=== PATIENT | female | born 2000 | race Caucasian/White ===

== ENCOUNTER 2025-02-05 20:22 | Outpatient (CLI) | payer OTHER, SELFPAY | END 2025-02-05 20:23 | disposition home or self-care (01) | PROVIDERS: Visit Provider Emergency Medicine | DX: R56.9 Unspecified convulsions (principal) | CPT/HCPCS: A0425; A0433 ==

== ENCOUNTER 2025-02-05 20:55 | Emergency (ER) | payer OTHER, SELFPAY ==
[2025-02-05] VITALS (7 sets, daily range): BP systolic 134; BP diastolic 81; PULSE 75–94; RESP 0–18; TEMP 36.4; O2SAT 94–99; BMI 29.2
[2025-02-05 21:40] LABS: Hematocrit 41.2 % (33.0-51.0); Hemoglobin* 14.2 gm/dL (12.0-16.0); Immature Granulocytes Abs Auto 0.04 K/uL (0.00-0.30); Immature Granulocytes Pct Auto 0.4 %; Lymphocytes Absolute Auto 1.20 K/uL (0.90-2.90); Mean Corpuscular HGB Conc 35 gm/dL (32-36); Mean Corpuscular Hemoglobin 29 pg (26-34); Mean Corpuscular Volume 85 fL (80-100); RDW Coefficient of Variation % 11.9 % (11.5-15.5); Red Blood Count 4.83 m/uL (4.00-5.20); Slide Review Reflex No; White Blood Count* 10.50 K/uL (4.50-11.00)
--- NOTE | 2025-02-05 21:43 | ED.GENADULT ---
HPI - General Adult General Date Seen: 02/05/25 Chief complaint: Seizure Stated complaint: Seizure Time Seen by Provider: 02/05/25 21:01 History of Present Illness HPI narrative: Patient is a generally healthy 24-year-old, visiting friends from [facility]. She does have a remote seizure history 13 years ago, none since. She is not on any antiseizure medicines. She was on the couch at her friend's house had a witnessed generalized seizure lasting about 2 minutes. No injuries or loss of bowel or bladder. She does have some nausea, paramedics gave her Zofran and droperidol. She feels very tired but that is her only complaint to me. She says for the past week she has been having some cold symptoms, denies any other significant illness, no recent trauma. She does not smoke, drinks occasionally, no other substances. Related Data Home Medications ?Medication ?Instructions ?Recorded ?Confirmed Wellbutrin 02/05/25 fluoxetine 10 mg capsule (Prozac) 10 mg PO DAILY 02/05/25 02/05/25 naltrexone 4.5 mg capsule mg PO 02/05/25 (Lotrexone) Allergies Allergy/AdvReac Type Severity Reaction Status Date / Time lomotragin Allergy Mild Uncoded 02/05/25 21:05 Review of Systems Status of ROS: Reports: 10 or more systems reviewed and unremarkable except as noted in History and below [facility] Social History Smoking Status: Never smoker Do you use any of these nicotine containing products: None Second hand tobacco smoke exposure: No How often do you have a drink containing alcohol: monthly or less How many standard drinks containing alcohol do you have on a typical day: 1 or 2 How often do you have six or more drinks on one occasion: Never AUDIT-C Alcohol total score: 1 Non-prescribed substance use: denies use service: No Exam Narrative: Exam Narrative: Vital signs reviewed In general, somnolent but easily arousable young woman. Well-appearing. Head: Normocephalic, atraumatic. Eyes: Sclera clear. Pupils equal and reactive. ENT: Mucous membranes moist. Neck: Supple without adenopathy. Heart: Regular rate and rhythm without murmur. Lungs: Clear. No increased work of breathing, crackles or wheezes. Abdomen: Soft, nontender to palpation. Extremities: Well perfused, pulses intact. No significant edema. Neurologic: Alert, conversant. Speech fluent, face symmetric. Moves all extremities equally. Skin: Warm, dry well perfused. Affect: Normal. Const: Vital Signs, click to edit/add: Vital Signs - 24 hr 02/05/25 20:59 02/05/25 21:05 02/05/25 21:15 Temperature 97.5 F L Pulse Rate 85 77 Pulse Rate [Pulse Oximeter] 75 Respiratory Rate 18 16 0 L Blood Pressure [Le ft Forearm] 134/81 Pulse Oximetry 94 96 94 Oxygen Delivery Me thod Room Air 02/05/25 21:30 02/05/25 21:45 02/05/25 22:00 Temperature Pulse Rate 93 90 94 Pulse Rate [Pulse Oximeter] Respiratory Rate 11 L 9 L 9 L Blood Pressure [Le ft Forearm] Pulse Oximetry 99 97 98 Oxygen Delivery Me thod 02/05/25 22:15 Temperature Pulse Rate 78 Pulse Rate [Pulse Oximeter] Respiratory Rate 16 Blood Pressure [Le ft Forearm] Pulse Oximetry 97 Oxygen Delivery Me thod Course Course ED Course: Given the remote nature of her previous seizure, will check some basic labs and give her some time to further wake up. Her exam however is reassuring, neurologically she is intact. I do not think there is any indication for imaging tonight. She has continued to awaken, is feeling better. Basic labs including magnesium reviewed and all reassuring. Blood sugar was 155. I spoke with her parents in [place] as well. I think it is reasonable let her go home. She is supposed to fly home tomorrow, she had a 5:00 a.m. flight which they are going to move to later in the day but discussed I think it is just fine for her to fly home tomorrow as planned on that later flight. In the meantime if she has recurrent seizure, should return to the ER. Neurology follow-up when she gets home. Vital Signs Vital signs: Initial Vital Signs Temperature 97.5 F L 02/05/25 20:59 Temperature Source Temporal Artery Scan 02/05/25 20:59 Pulse Rate 75 02/05/25 20:59 Pulse Rhythm Regular 02/05/25 20:59 Respiratory Rate 18 02/05/25 20:59 Blood Pressure 134/81 02/05/25 20:59 Blood Pressure Mean 98 02/05/25 20:59 Blood Pressure Position Sitting 02/05/25 20:59 Pulse Oximetry 94 02/05/25 20:59 Oxygen Delivery Method Room Air 02/05/25 20:59 Vital Signs Temperature 97.5 F L 02/05/25 20:59 Pulse Rate 75 02/05/25 20:59 Respiratory Rate 18 02/05/25 20:59 Blood Pressure 134/81 02/05/25 20:59 Pulse Oximetry 94 02/05/25 20:59 Oxygen Delivery Method Room Air 02/05/25 20:59 Temperature 97.5 F L 02/05/25 20:59 Pulse Rate 78 02/05/25 22:15 Respiratory Rate 16 02/05/25 22:15 Blood Pressure 134/81 02/05/25 20:59 Pulse Oximetry 97 02/05/25 22:15 Oxygen Delivery Method Room Air 02/05/25 20:59 Medical Decision Making Lab Data Lab results reviewed: Yes I reviewed the patient's lab results Labs: Lab Results 02/05/25 Range/Units 21:35 WBC 10.50 (4.50-11.00) K/uL RBC 4.83 (4.00-5.20) m/uL Hgb 14.2 (12.0-16.0) gm/dL Hct 41.2 (33.0-51.0) % MCV 85 (80-100) fL MCH 29 (26-34) pg MCHC 35 (32-36) gm/dL RDW Coeff of Cristal 11.9 (11.5-15.5) % Plt Count 187 (140-440) K/uL Neut % (Auto) 81.1 H (42.0-72.0) % Lymph % (Auto) 11.8 L (20-44) % [place]upe % (Auto) 5.9 (0.0-11.0) % Eos % (Auto) 0.6 (0.0-7.0) % Baso % (Auto) 0.2 (0.0-3.0) % Neut # (Auto) 8.50 H (1.7-7.0) K/uL Lymph # (Auto) 1.20 (0.90-2.90) K/uL [place] # (Auto) 0.60 (0.00-0.90) K/UL Eos # (Auto) 0.06 (0.00-0.50) K/uL Baso # (Auto) 0.02 (0.00-0.30) K/uL Abs Immat Gran (auto) 0.04 (0.00-0.30) K/uL Imm/Tot Granulo (auto) 0.4 % Sodium 136 (135-149) mmol/L Potassium 3.7 (3.6-5.1) mmol/L Chloride 102 (96-114) mmol/L Carbon Dioxide 23 (20-32) mmol/L Anion Gap 11 (7-15) mEq/L BUN 11 (5-24) mg/dL Creatinine 0.8 (0.5-1.5) mg/dL Estimated Creat Clear 92.83 Estimated GFR 105 ml/min Glucose 155 H (60-115) mg/dL Calcium 9.2 (8.4-10.6) mg/dL Magnesium 2.3 (1.5-2.6) mg/dL Discharge Plan Discharge Clinical Impression: Generalized seizure Patient Disposition: Home, Self-Care Condition: Improved Instructions: New-Onset Seizure in Adults (ED) Additional Instructions: Your labs are all normal tonight. It is okay for you to go home and go to bed is normal. If you would like to fly home tomorrow that is okay as well although agree with changing your flight to something later in the day. If you have recurrent seizures, you should return to the emergency department. Otherwise, I would recommend neurology follow-up when you get back to [place]. They will help determine the best next course of action for you. In the meantime, you should not drive, swim, or participate in any activities where loss of consciousness would put you in danger. Prescriptions: No Action fluoxetine [Prozac] 10 mg capsule 10 mg PO DAILY Lotrexone 4.5 mg capsule PO Wellbutrin Follow Up/Referrals: Provider,Not a Local [Primary Care Provider, Family Practice] Stand Alone Forms: [employer] Info Instructions
[2025-02-05 22:10] LABS: Chloride* 102 mmol/L (96-114); Sodium* 136 mmol/L (135-149)
[2025-02-05 22:11] LABS: Potassium* 3.7 mmol/L (3.6-5.1)
[2025-02-05 22:13] LABS: Anion Gap 11 mEq/L (7-15); Blood Urea Nitrogen* 11 mg/dL (5-24); Carbon Dioxide* 23 mmol/L (20-32); Creatinine* 0.8 mg/dL (0.5-1.5); Est. Creatinine Clearance* 92.83; Estimated Glomerular Filt Rate 105 ml/min
[2025-02-05 22:14] LABS: Calcium* 9.2 mg/dL (8.4-10.6); Glucose* 155 mg/dL (60-115)
== END 2025-02-05 22:44 | disposition home or self-care (01) ==
PROVIDERS: Emergency Provider Emergency Medicine
DX: G40.409 Other generalized epilepsy and epileptic syndromes, not intractable, without status epilepticus (principal)
CPT/HCPCS: 36415; 80048; 83735; 85025; 99284